=== PATIENT | male | born 1945 | race Caucasian/White ===

== ENCOUNTER 2018-09-04 06:04 | Day surgery (SDC) | payer BC, OTHER ==
[2018-09-03 16:11] VITALS: BMI 28.1
[2018-09-04] MEDS ORDERED: LIDOCAINE HCL/PF 2% SDV 5ML VIAL ONE (07:09)
[2018-09-04] MEDS ORDERED: DEXAMETHASONE SOD PHOSPHATE 4 MG/1 ML VIAL ONE (07:09)
[2018-09-04] MEDS ORDERED: PHENYLEPHRINE HCL 10 MG/1 ML SINGLE DOSE VIAL ONE (07:09)
[2018-09-04] MEDS ORDERED: ePHEDrine SULFATE 50 MG/1 ML AMPULE ONE ×2 (07:10)
[2018-09-04] MEDS ORDERED: MIDAZOLAM HCL 2 MG/2 ML SINGLE DOSE VIAL ONE (07:10)
[2018-09-04] MEDS ORDERED: SUCCINYLCHOLINE CHLORIDE 200 MG/10 ML VIAL ONE (07:10)
[2018-09-04] MEDS ORDERED: PROPOFOL 20 ML ONE (07:10)
[2018-09-04] MEDS ORDERED: ceFAZolin SODIUM 1 GM VIAL ONE (07:11)
[2018-09-04] MEDS ORDERED: LIDOCAINE HCL 1%, 10 MG/ML (20ML VIAL) ONE (07:27)
--- NOTE | 2018-09-04 07:32 | HP ---
Satellite H - Chief Complaint Chief Complaint: right index finger mass - Past Medical History Allergies/Adverse Reactions: Allergies Allergy/AdvReac Type Severity Reaction Status Date / Time No Known Allergies Allergy Verified 09/04/18 06:26 - Current Medications Current Medications: Home Medications Medication Instructions Recorded Atorvastatin Ca [Lipitor] 10 mg PO HS 09/03/18 Esomeprazole Magnesium [Nexium 20 mg PO DAILY 09/03/18 24Hr] Hydrochlorothiazide [Hctz -] 25 mg PO DAILY 09/03/18 Losartan Potassium 25 mg PO DAILY 09/03/18 Metformin HCl [Glucophage] 1,000 mg PO BID 09/03/18 Hydrocodone/Acetaminophen 1 each PO Q6H #20 tablet MDD 4 09/04/18 [Hydrocodone-Acetamin 5-325 mg] Satellite Physical Exam - Physical Examination Vital Signs: Vital Signs Period Temp Pulse Resp BP Sys/Cabral Pulse Ox Last 24 Hr 98.4 F 87 18 136/80 97 General Appearance: Well Nourished, Well Developed, Alert & Oriented x3 ENT: Clear Lung: Normal air movement Heart: Regular rate & rhythm Extremities: Other (right index finger- + mass, + ttp, nvi) Neurological: Intact, Alert, Oriented Satellite Impression/Plan - Impression/Plan Impression: right index finger mass Operative Procedure: right index finger mass excision Date to be Performed: 09/04/18
[2018-09-04] MEDS ORDERED: ceFAZolin SODIUM 1 GM VIAL IVPB ONE (08:08)
[2018-09-04] MEDS ORDERED: KETOROLAC TROMETHAMINE 30 MG/1 ML VIAL ONE (08:14)
[2018-09-04] MEDS ORDERED: BUPIVACAINE HCL/PF (5 MG/ML) 30 ML VIAL IJ ONE ×2 (08:26)
[2018-09-04] MEDS ORDERED: LIDOCAINE HCL 1%, 10 MG/ML (50 mL VIAL) IJ ONE ×2 (08:26)
--- NOTE | 2018-09-04 08:50 | OP ---
Operative Note - Note: Operative Date: 09/04/18 Pre-Operative Diagnosis: right index finger mass Operation: right index finger mass excision Post-Operative Diagnosis: Same as Pre-op Surgeon: Norman Bose [employer] Architect: Barney Beauchamp Anesthesiologist/[employer] OPERATOR: Nabil Craft Anesthesia: Local, MAC Specimens Removed: mass, right index finger Estimated Blood Loss (mls): 0 Drains, Volume Out (mls): 0 Blood Volume Replaced (mls): 0 Fluid Volume Replaced (mls): 500 Operative Report Dictated: Yes
--- NOTE | 2018-09-04 09:35 | OP ---
DATE OF OPERATION: 09/04/2018 PREOPERATIVE DIAGNOSIS: Right index finger mass. POSTOPERATIVE DIAGNOSIS: Right index finger mass. PROCEDURE: Right index finger mass excision. SURGEON: Norman Bose MD CREMATOR: Barney Pires MD SPECIMEN: Mass, right index finger. DRAINS: None. COMPLICATIONS: None. BLOOD LOSS: None. BLOOD GIVEN: None. FLUID REPLACEMENT: 500 mL. INDICATIONS: This patient is a 73-year-old male with a preoperative diagnosis of a mass in the right index finger. After understanding the potential risks, complications, alternatives, and benefits of surgery versus nonsurgical treatment, the patient elected to undergo this procedure. DESCRIPTION OF PROCEDURE: The patient was brought to the operating room, peripheral IV was placed, IV sedation was given. One gram of IV Ancef was given, MAC anesthesia was induced. The right upper extremity was prepped and draped in sterile fashion, elevated, exsanguinated with an Esmarch bandage and the tourniquet inflated to 250 mmHg. Then, 5 mL of 0.5% Marcaine with 1% Lidocaine mix was injected in around the surgical excision. A No. 15 scalpel was utilized to cut down through the skin in a longitudinal manner. Subcutaneous hemostasis was achieved with bipolar cautery. Dissection was done with a curved iris scissors as well as a fresh No. 15 scalpel blade exposing the mass. At one point, it popped and classic ganglion cyst-like fluid came out confirming the diagnosis of a multiloculated ganglion cyst. I continued circumferential dissection with the curved iris scissors exposing the entirety of the mass. It was decapitated at its base. There was no stalk to a joint. It was indepdent. The area was copiously irrigated and washed out. I did not see or feel any abnormal tissue. The base where the ganglion cyst had been was cauterized a little bit. Closure was done with 4-0 undyed Vicryl at deep dermal layer. Final skin reapproximation was done with horizontal mattress 4-0 nylon sutures. The area was then washed and dried, covered with Xeroform gauze, 4x4 gauze, fluffs between the fingers, Webril, and Coban. The tourniquet was taken down after a total tourniquet time of 12 minutes. There were no complications during the case. The patient tolerated the procedure quite well and was brought to the ambulatory recovery room in stable condition. BARNEY PIRES M.D. [id number]
[2018-09-04] MEDS ORDERED: ONDANSETRON 4 MG/2 ML VIAL IVPUSH PRN (09:43)
[2018-09-04] MEDS ORDERED: oxyCODONE HCL 5 MG TABLET PO PRN ×2 (09:43)
[2018-09-04] MEDS ORDERED: LACTATED RINGERS SOLUTION 1,000 ML IV SCH (09:45)
[2018-09-04 10:26] VITALS: BP 107/62; PULSE 64; TEMP 98.1
--- NOTE | 2018-09-05 18:11 | PATH ---
Surgical Pathology Report Patient Name: STEFANO DIOR [facility]. Rec. #: [id number] /Age/Gender: 1945 (Age: 73) / M Account: [id number] Location: [facility] SUR[facility] Taken: 09/04/2018 Received: 09/04/2018 Reported: 09/05/2018 Physicians: Barney Beauchamp M.D. Specimen(s) Received MASS RIGHT INDEX FINGER Clinical History Mass right index finger Final Diagnosis INDEX FINGER, RIGHT, MASS, EXCISION: GANGLION CYST. Electronically Signed Lesli Jewell M.D. Gross Description Received in formalin labeled "mass right index finger," is a 0.9 x 0.8 x 0.4 cm intact cystic structure containing clear mucinous material. The specimen is trisected and entirely submitted in one cassette. /09/04/2018 saudi09/04/2018
== END 2018-09-04 10:15 | disposition home or self-care (01) ==
LOC: JASU-SURG 06:04
PROVIDERS: ATTEND Orthopaedic Surgery
PROC: 0LB70ZZ Excision of Right Hand Tendon, Open Approach (ICD-10-PCS; principal; 2018-09-04 08:00)
DX: M67.48 Ganglion, other site (principal)
CPT/HCPCS: 82962; 88304-TC; 94760